=== PATIENT | male | born 1950 | race Two or more races ===

== ENCOUNTER 2016-12-15 18:07 | Emergency (ER) | payer OTHER ==
[~2016-12-15] VITALS: Ht 172.7 cm; Wt 59.0 kg
[2016-12-15] MEDS ORDERED: ALBU2.5V38 HHN (18:38)
[2016-12-15] MEDS ORDERED: PYRI50TA9 GT (18:38)
[2016-12-15] MEDS ORDERED: DIPH1TAB GT (18:38)
[2016-12-15] MEDS ORDERED: ZOLP10TA6 GT (18:38)
[2016-12-15] MEDS ORDERED: LATA2.5D2 EACHEYE (18:38)
[2016-12-15] MEDS ORDERED: MULT1TAB11 GT (18:38)
[2016-12-15] MEDS ORDERED: FERR-58 GT (18:38)
[2016-12-15] MEDS ORDERED: QUET25TA GT (18:38)
[2016-12-15] MEDS ORDERED: BENIFIBER GT (18:38)
[2016-12-15] MEDS ORDERED: CRANBERRY GT (18:38)
[2016-12-15] MEDS ORDERED: DEXT1DRO6 EACHEYE (18:38)
[2016-12-15] MEDS ORDERED: ACID1TAB4 GT (18:38)
[2016-12-15] MEDS ORDERED: DOXY150T GT (18:38)
[2016-12-15] MEDS ORDERED: IPRATROPIUM BROMIDE HHN (18:38)
[2016-12-15] MEDS ORDERED: LORA1TAB GT (18:38)
[2016-12-15] MEDS ORDERED: ACET-2154 GT (18:38)
[2016-12-15] MEDS ORDERED: ONDA4SOL2 GT (18:38)
[2016-12-15] MEDS ORDERED: METO10TA3 GT (18:38)
[2016-12-15] MEDS ORDERED: LOPE2CAP40 GT (18:38)
[2016-12-15] MEDS ORDERED: AMIN30LI2 GT (18:38)
[2016-12-15] MEDS ORDERED: APAP/CODEINE 300-30 GT (18:38)
[2016-12-15] MEDS ORDERED: ASCO500C16 GT (18:38)
[2016-12-15 18:44] LABS: BASOPHILS % (AUTO) 0.7 % (0.0-2.0); EOSINOPHILS % (AUTO) 0.9 % (0.0-7.0); HEMATOCRIT 39.8 % (36.7-47.1); HEMOGLOBIN 13.3 g/dL (12.5-16.3); LYMPHOCYTES # (AUTO) 1.4 K/uL (20.0-40.0); LYMPHOCYTES % (AUTO) 29.8 % (20.5-51.5); MEAN CORPUSCULAR HGB CONC 33 g/dL (32.5-36.3); MEAN CORPUSCULAR VOLUME 99.1 fL (73.0-96.2); MONOCYTES # (AUTO) 0.6 K/uL (2.0-10.0); NEUTROPHILS # (AUTO) 2.8 K/uL (1.8-8.9); NEUTROPHILS % (AUTO) 55.6 % (38.5-71.5); PLATELET COUNT (AUTO) 147 K/uL (152-348); RED BLOOD CELL COUNT(AUTO) 4.01 MIL/uL (4.06-5.63); WHITE BLOOD COUNT (AUTO) 4.8 K/uL (3.6-10.2)
[2016-12-15 18:46] LABS: CARBON DIOXIDE 30 mmol/L (21-32); CHLORIDE 105 mmol/L (98-107); CREATININE 0.8 mg/dL (0.6-1.3); GLUCOSE 105 mg/dL (74-106); POTASSIUM 4.3 mmol/L (3.5-5.1); UREA NITROGEN, BLOOD 27 mg/dL (7-18)
[2016-12-15 18:52] LABS: ALANINE AMINOTRANSFERASE 33 U/L (16-63); ALKALINE PHOSPHATASE 160 U/L (50-136); ASPARTATE AMINOTRANSFERASE 34 U/L (15-37); BILIRUBIN,DIRECT 0.2 mg/dL (0.0-0.2); BILIRUBIN,TOTAL 0.6 mg/dL (0.2-1.0)
--- NOTE | 2016-12-15 18:53 | NUR ---
Patient is resting comfortably ob bed with eyes closed, pending medical clearance then a psych evaluation at this time.
[2016-12-15 18:54] LABS: ETHANOL < 3 MG/DL (0-0)
[2016-12-15 18:56] LABS: ACETAMINOPHEN < 2.0 ug/mL (10-30)
[2016-12-15 20:05] LABS: *BILIRUBIN,URIN NEGATIVE (NEGATIVE); *BLOOD, URINE 2+ (NEGATIVE); *CLARITY,URINE SLIGHTLY CLOUDY (CLEAR); *COLOR,URINE YELLOW (YELLOW); *KETONES,URINE NEGATIVE (NEGATIVE); *PROTEIN,URINE 2+ (NEGATIVE); *UROBILINOGEN,URINE 0.2 E.U./dl (NORMAL); LEUKOCYTE ESTERASE ,URINE 1+ (NEGATIVE); NITRITE, URINE NEGATIVE (NEGATIVE); PH,URINE 7.5 (5.0-8.0); UGLUCOSE NEGATIVE (NEGATIVE)
[2016-12-15 20:18] LABS: *AMPHETAMINE, URINE NEGATIVE (NEGATIVE); *BARBITURATE, URINE NEGATIVE (NEGATIVE); *CANNABINOID, URINE NEGATIVE (NEGATIVE); *COCCAINE, URINE NEGATIVE (NEGATIVE); *OPIATE, URINE POSITIVE (NEGATIVE); *PHENCYCLIDINE SCREEN,URINE NEGATIVE (NEGATIVE)
[2016-12-15 20:28] LABS: MUCUS,URINE MODERATE /LPF (0-FEW); RBC,URINE 50-80 /HPF (0-3); SQUAMOUS EPITHELIAL CELL,UR FEW /HPF (NONE SEEN); URINE AMORPHOUS PHOSPHATES FEW /HPF; WBC,URINE 20-50 /HPF (0-3)
[2016-12-15] MEDS: SULFAMETH/TRIMETH 800/160 MG TABLET PO ONE (20:53)
[2016-12-15] MEDS ORDERED: SULFAMETH/TRIMETH 800/160 MG TABLET ONE (20:57)
--- NOTE | 2016-12-15 21:04 | NUR ---
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
--- NOTE | 2016-12-15 21:12 | NUR ---
Patient discharged to home in stable conditon. Written and verbal after care instructions given. Patient verbalizes understanding of instructions.
[2016-12-15 21:15] VITALS: BP 115/70
== END 2016-12-15 21:12 | disposition home or self-care (01) ==
LOC: ER 18:13
DX: N39.0 Urinary tract infection, site not specified (principal); E86.0 Dehydration; R44.3 Hallucinations, unspecified; F10.20 Alcohol dependence, uncomplicated; F41.9 Anxiety disorder, unspecified; D64.9 Anemia, unspecified; Z87.01 Personal history of pneumonia (recurrent); H40.9 Unspecified glaucoma
CPT/HCPCS: 36415; 80307; 85025; 85730; 93005; A4663; G0480; G0480-TC